=== PATIENT | male | born 1975 | race African-American/Black ===

== ENCOUNTER 2017-08-26 14:28 | Inpatient (IN) | payer MEDICARE, OTHER ==
[~2017-08-26] VITALS: Ht 180.3 cm; Wt 74.8 kg
[2017-08-26 16:05] LABS: Basophils # (auto) 0 uL; Basophils % (auto) 0.8 % (0.0-2.0); Eosinophils # (auto) 0.1 uL; Eosinophils % (auto) 1.7 % (0.0-7.0); Hematocrit 41.6 % (41.0-53.0); Hemoglobin 13.6 g/dL (13.5-17.5); Lymphocytes # (auto) 1.8 uL; Lymphocytes % (auto) 33.5 % (10.0-50.0); Mean Corpuscular Hemoglobin 29.5 pg (28.0-32.0); Mean Corpuscular Hgb Conc. 32.6 g/dL (32.0-36.0); Mean Corpuscular Volume 90.5 fL (80.0-100.0); Monocytes # (auto) 0.4 uL; Neutrophils # (auto) 3.1 uL; Nucleated Red Blood Cells % 0.1 %; Platelet Count (auto) 196 10^3/uL (140-450); Red Cell Distribution Width 13.9 % (11.8-14.3); White Blood Cell 5.5 10^3/uL (4.4-10.8)
[2017-08-26] MEDS ORDERED: SODIUM CHLORIDE 0.9% 1,000 ML IV ONE (16:08)
[2017-08-26] MEDS ORDERED: NITROGLYCERIN 0.4 MG SL TAB SL ONE (16:15)
[2017-08-26] MEDS ORDERED: ASPirin 81 mg TAB PO ONE (16:15)
[2017-08-26] MEDS ORDERED: MORPHINE SULFATE 4 MG/ML SYR/VIAL IV PRN ×2 (16:15→23:45)
[2017-08-26 16:24] LABS: Alanine Aminotransferase 43 U/L (16-61); Albumin 3.6 g/dL (3.4-5.0); Alkaline Phosphatase 70 U/L (45-117); Anion Gap 6 (5-15); Aspartate Aminotransferase 28 U/L (15-37); BUN/Creatinine Ratio 21.3; Bilirubin, Total 0.3 mg/dL (0.2-1.0); Blood Urea Nitrogen 20 mg/dL (7-18); Calcium 8.8 mg/dL (8.5-10.1); Carbon Dioxide 25 mmol/L (21-32); Chloride 107 mmol/L (98-107); GFR African American 112 mL/min; GFR Non-African American 93 mL/min; Glucose 96 mg/dL (74-106); Magnesium 2.3 mg/dL (1.6-2.6); Sodium 138 mmol/L (136-145); Total Protein 8.3 g/dL (6.4-8.2)
[2017-08-26 18:01] LABS: INR 0.98 (0.9-1.15)
[2017-08-26] MEDS ORDERED: IOHEXOL 350 MG/ML 100ML IJ ONE (18:50)
[2017-08-26] MEDS ORDERED: LIDOCAINE 2%HCL (LOCAL ANESTH.) INJ 20ML MDV ONE (18:51)
[2017-08-26] MEDS ORDERED: fentaNYL CITRATE 100 MCG/2 ML VL ONE (19:05)
[2017-08-26] MEDS ORDERED: SODIUM CHL 0.9% 50 ML ONE (19:05)
[2017-08-26] MEDS ORDERED: ANGIOMAX 250 MG VIAL IV ONE (19:05)
[2017-08-26] MEDS ORDERED: MIDAZOLAM HCL 1MG/1ML-2 ML VIAL ONE (19:05)
[2017-08-26 20:00] VITALS: BP_SYST 141; BP_SYST 145; BP_DIAS 100; BP_DIAS 94
[2017-08-26] MEDS ORDERED: NITROGLYCERIN 0.4 MG SL TAB SL PRN (23:45)
[2017-08-26] MEDS ORDERED: TEMAZEPAM 15 MG CAP PO PRN (23:45)
[2017-08-27 04:47] VITALS: BP 120/78
[2017-08-27 06:56] LABS: Urine Bacteria NONE SEEN /hpf (None Seen); Urine Blood Negative /uL (Negative); Urine Specific Gravity 1.036 (1.001-1.035); Urine WBC <1 /hpf (0 - 3)
[2017-08-27 08:54] VITALS: BP 118/62
[2017-08-27 13:09] VITALS: BP 103/64
[2017-08-27 15:17] VITALS: BP 118/62
== END 2017-08-27 15:17 | disposition home or self-care (01) | DRG 206 ==
LOC: ER 14:28 → CATH 19:04 → EAST 20:51
PROVIDERS: ADMIT Internal Medicine Cardiovascular Disease; ATTEND Internal Medicine Cardiovascular Disease
PROC: 4A023N7 Measurement of Cardiac Sampling and Pressure, Left Heart, Percutaneous Approach (ICD-10-PCS; principal; 2017-08-26)
PROC: B2111ZZ Fluoroscopy of Multiple Coronary Arteries using Low Osmolar Contrast (ICD-10-PCS; 2017-08-26)
PROC: B2151ZZ Fluoroscopy of Left Heart using Low Osmolar Contrast (ICD-10-PCS; 2017-08-26)
PROC: B41J1ZZ Fluoroscopy of Other Lower Arteries using Low Osmolar Contrast (ICD-10-PCS; 2017-08-26)
DX: M94.0 Chondrocostal junction syndrome [Tietze] (principal); F81.9 Developmental disorder of scholastic skills, unspecified; I10 Essential (primary) hypertension; Z82.49 Family history of ischemic heart disease and other diseases of the circulatory system
CPT/HCPCS: 36415; 71046; 75736; 80053; 81001; 83735; 83880; 84443; 84484; 85025; 85379; 85610; 85730; 93005; 93458; 94761; 96372; 99152; J2250